=== PATIENT | female | born 1990 | race Caucasian/White ===

== ENCOUNTER 2018-07-15 06:56 | Inpatient (IN) | payer OTHER ==
[2018-07-15] MEDS ORDERED: TERBUTALINE SULFATE 1 MG/ML VIAL IV PRN (07:07)
[2018-07-15] MEDS ORDERED: EPSOM SALT 454 GM TP PRN (07:07)
[2018-07-15] MEDS ORDERED: IBUPROFEN 600 MG TAB PO PRN (07:07)
[2018-07-15] MEDS ORDERED: AMMONIA AROMATIC 1 EACH AMP IH PRN (07:07)
[2018-07-15] MEDS ORDERED: OLIVE OIL 118 ML BTL MISC PRN (07:07)
[2018-07-15] MEDS ORDERED: LR 1,000 ML IV PRN (07:07)
[2018-07-15] MEDS ORDERED: MISOPROSTOL 200 MCG TAB PO PRN (07:07)
[2018-07-15] MEDS ORDERED: OXYTOCIN/RINGERS LACTATE 1,000 ML IV PRN (07:07)
[2018-07-15] MEDS ORDERED: LIDOCAINE 1% 300 MG/30 ML SDV SC PRN (07:07)
[2018-07-15] MEDS ORDERED: OLIVE OIL 118 ML BTL MISC ONE (09:48)
[2018-07-15] MEDS ORDERED: AMMONIA AROMATIC 1 EACH AMP IH ONE (09:48)
[2018-07-15] MEDS ORDERED: LIDOCAINE 1% 300 MG/30 ML SDV ONE (09:48)
[2018-07-15] MEDS ORDERED: OXYTOCIN 10 UNIT/ML VIAL ONE (09:48)
[2018-07-15] MEDS ORDERED: TERBUTALINE SULFATE 1 MG/ML VIAL ONE (09:48)
[2018-07-15] MEDS ORDERED: MISOPROSTOL 200 MCG TAB ONE (09:49)
[2018-07-15 10:07] LABS: PLATELET COUNT 190 10^3/uL (150-400)
[2018-07-15] MEDS ORDERED: ACETAMINOPHEN 325 MG TAB PO PRN (11:37)
[2018-07-15] MEDS ORDERED: DOCUSATE SODIUM 100 MG CAP PO PRN (11:37)
[2018-07-15] MEDS ORDERED: SIMETHICONE 80 MG TAB CHEW PO PRN (11:37)
[2018-07-15] MEDS ORDERED: HYDROCORTISONE 0.5% CREAM TP PRN (11:37)
--- NOTE | 2018-07-15 11:53 | PDGENHP ---
History and Physical History and Physical: Care: [facility] HPI: Jennifer Guillen is a 27 yo with IUP @39-6 weeks that presents to L&D with complaints of contractions since 299. She states they have been EDC: 07/16/18 which is based on LMP: 09/29/2017 which is known and consistent with Ultrasound at 8 weeks. Her is complicated by: +CF carrier, anemia Review of Systems: Constitutional: Denies any fever, chills, or fatigue HEENT: denies any visual changes, difficulty swallowing, hearing loss Cardiovascular: Denies any chest pain, palpitations, leg swelling Respiratory: denies any cough, wheezing, or shortness of breathe GI: Denies any nausea, vomiting, diarrhea, constipation : denies any dysuria, urgency, frequency, vaginal bleeding Musculoskeletal: denies any muscle or bone pain Skin: denies any rashes Neuro: denies any headache, seizures, lightheadedness, dizziness, or loss of consciousness Psychiatric: denies any depression, anxiety, or SI/HI thoughts HISTORY: Previous OB history: , SAB x1 Past medical history: +CF carrier Past surgical history: oral surgery Social: Denies any alcohol, tobacco, or drug use. to Nnamdi, son Ricky, works at [employer] surgery Family history: Not relevant Medications: PNV Allergies (list reaction): NKDA LABS: Rh: AB+ ABS: Neg Rubella: Immune HbsAg: NR HIV: NR VDRL: NR 1hr: 93 GC: Neg Chlamydia: Neg Pap: Normal GBS: negative BMI: (prepreg) 20 PHYSICAL EXAM: Constitutional: WN, A&Ox3 HEENT: normocephalic atraumatic, supple Skin: Warm, dry, intact Heart: RRR, no murmur Chest: CTA-B Abdomen: Soft, nontender, gravid SVE: 6/100/-1 Extremities: no edema, negative homans sign Neuro: grossly normal Psych: normal affect assessment: FHT baseline 125 +accels, no decels, moderate variability Contractions: toco q 3-5 Assessment: * 27yo with IUP@ 39-6wks * Active labor * GBS Negative Plan: * admit to L&D * anticipate Today's visit was approximately 30 min, of which >50% of visit 20 min, was spent face to face with pt on direct counseling/coordination of care.
--- NOTE | 2018-07-15 11:57 | OBDEL ---
Info Type: Vaginal Presentation at Delivery: Vertex L&D Analgesia/Anesthesia Type: None GBS+: No Intrapartum Medications: Discontinued Medications Generic Name Dose Route Start Last Admin Trade Name Lion PRN Reason Stop Dose Admin Ibuprofen 600 mg 07/15/18 07:07 07/15/18 11:14 Motrin PO 600 mg ONCE PRN Administration post , pain Indications for Delivery: Spontaneous Labor Vaginal Delivery - Delivery Provider Delivery Physician/CNM: Isabelle Saleem - Labor and Delivery Onset of Contractions Date: 07/15/18 Onset of Contractions Time: 04:00 Rupture of Membranes Date: 07/15/18 Rupture of Membranes Time: 10:35 Rupture of Membranes Type: Artificial Amniotic Fluid Color: Clear Dilation Complete Date: 07/15/18 Dilation Complete Time: 10:45 Placenta Delivery Date: 07/15/18 Placenta Delivery Time: 10:58 Total Hours of Labor: 6 Vaginal Sponge Count Correct: Yes Vaginal Needle Count Correct: Yes Vaginal Sweep Performed: Yes EBL: 200 Delivery Events: Nuchal Cord [place] Data RICHARD: 07/16/18 Gestational Age: 39 week(s) and 6 day(s) [place] Delivery Date: 07/15/18 Delivery Time: 10:54 Sex of Infant: Female Score (1 Min): 8 Score (5 Min): 9 ICD10 Worksheet Patient Problems: Problems Problem Status Onset Nuchal cord, single gestation Acute Precipitate labor, with delivery Acute (spontaneous vaginal delivery) Acute (spontaneous vaginal delivery) Acute - ICD10 Problem Qualifiers (1) (spontaneous vaginal delivery) (2) Nuchal cord, single gestation (3) Precipitate labor, with delivery
[2018-07-15] MEDS: IBUPROFEN 600 MG TAB PO PRN ×2 (17:34→23:35)
[2018-07-16] MEDS: IBUPROFEN 600 MG TAB PO PRN (06:27)
--- NOTE | 2018-07-16 08:45 | OBGCSDC ---
General Delivery Information - General Info : 3 Para: 1 Abortions: 1 Type: Vaginal L&D Analgesia/Anesthesia Type: Spinal Admission Date: 07/15/18 Labs: Patient ABO/Rh AB POSITIVE 07/15/18 09:55 Hct 38.8 % (38.0-47.0) 07/15/18 09:55 - Hospital Course : 07/16/18 08:44 S) Pt doing well, reports min pain and bleeding. she is ambulating and voiding without difficulty. She is . She desires discharge home today. O) VSS, afebrile constitutional: WNF, A&Ox3 HEENT: normocephalic, atraumatic, supple Heart: RRR, No murmur Chest: CTA-B Breasts: soft, nontender, not engorged, nipples intact/normal Abdomen: Soft, nontender Uterus: Firm at U-2 Lochia: Minimal rubra Perineum: Intact, healing well Extremities: Trace edema, and negative Sophie's sign Neuro: Grossly normal A) 27-year-old S/P PPD#1 P) Discharge home today Continue Pelvic rest x6wks Discussed danger signs (infection, preeclampsia, depression, heavy bleeding, etc ) RTO in 2/4/6 weeks Vaginal - Delivery Provider Delivery Physician/CNM: Isabelle Saleem - Diagnosis Rupture of Membranes Type: Artificial Amniotic Fluid Color: Clear Delivery Events: Nuchal Cord - Delivery EBL: 200 [place] Data RICHARD: 07/16/18 Gestational Age: 40 week(s) and 0 day(s) [place] Delivery Date: 07/15/18 Delivery Time: 10:54 Sex of Infant: Female [place] Weight (gm): 3622 g Score (1 Min): 8 Score (5 Min): 8 Discharge Information - Discharge Information Condition: Good
[2018-07-16 08:47] VITALS: BP 93/57
== END 2018-07-16 11:30 | disposition home or self-care (01) | DRG 807 ==
LOC: OBSVTOIN 06:56 → FLD 06:56 → FOB 14:40
PROVIDERS: ADMIT Advanced Practice Midwife; ATTEND Advanced Practice Midwife
PROC: 10E0XZZ Delivery of Products of Conception, External Approach (ICD-10-PCS; principal; 2018-07-15)
DX: O99.013 Anemia complicating pregnancy, third trimester (principal); O69.9XX0 Labor and delivery complicated by cord complication, unspecified, not applicable or unspecified; D64.9 Anemia, unspecified; Z14.1 Cystic fibrosis carrier; Z3A.39 39 weeks gestation of pregnancy; Z37.0 Single live birth
CPT/HCPCS: J2590; J3105